=== PATIENT | female | born 1985 | race African-American/Black ===

== ENCOUNTER → 2017-06-14 | Outpatient (CLI) | payer MEDICAID | LOC: CIMAGING 08:05 | PROVIDERS: ATTEND Physician Assistant | DX: K80.20 Calculus of gallbladder without cholecystitis without obstruction (principal); K76.0 Fatty (change of) liver, not elsewhere classified; B19.10 Unspecified viral hepatitis B without hepatic coma | CPT/HCPCS: 76705-PO ==